=== PATIENT | male | born 1955 | race Caucasian/White ===

== ENCOUNTER 2018-05-26 01:55 | Inpatient (IN) | payer MEDICARE ==
[~2018-05-26] VITALS: Ht 182.9 cm; Wt 113.8 kg
[2018-05-26] MEDS ORDERED: JANUVIA100 MG PO (02:11)
[2018-05-26] MEDS ORDERED: LOSARTAN POT50 MG PO (02:12)
[2018-05-26] MEDS ORDERED: FUROSEMIDE40 MG PO (02:12)
[2018-05-26] MEDS ORDERED: SPIRONOLACT25 MG PO (02:12)
[2018-05-26] MEDS ORDERED: SERTRALINE50 MG PO (02:13)
[2018-05-26] MEDS ORDERED: PRADAXA150 MG PO (02:13)
[2018-05-26] MEDS ORDERED: MICRO-K10 MEQ PO (02:13)
[2018-05-26] MEDS ORDERED: LANTUS100 UNIT/M SC (02:14)
[2018-05-26] MEDS ORDERED: CARVEDILOL6.25 MG PO (02:15)
[2018-05-26] MEDS ORDERED: NOVOLOG100 UNIT/M SC (02:15)
[2018-05-26] MEDS ORDERED: NEURONTIN300 MG PO (02:16)
[2018-05-26] MEDS ORDERED: METFORMIN500 MG PO (02:16)
[2018-05-26] MEDS ORDERED: ASPIRIN CHEWABL81 MG PO (02:17)
[2018-05-26] MEDS ORDERED: KLONOPIN1 MG PO (02:17)
[2018-05-26] MEDS ORDERED: MORPHINE SUL15 MG PO (02:18)
[2018-05-26] MEDS ORDERED: ULTRAM50 MG PO (02:18)
[2018-05-26 02:38] LABS: HEMATOCRIT 39.1 % (39.0-50.0); HEMOGLOBIN 12.2 g/dl (14.0-18.0); IMMATURE GRANULOCYTES 0.7 % (0.0-5.0); MEAN CELL VOLUME 89.5 fL CALC (80.0-100.0); MEAN CORPUSCULAR HGB 27.9 pG CALC (26.0-32.0); MEAN CORPUSCULAR HGB CONC 31.2 g/L CALC (32.0-36.0); NEUT# 12.53 thou/uL (1.82-7.42); RED BLOOD COUNT 4.37 mill/uL (4.70-6.10)
[2018-05-26 02:45] LABS: ALKALINE PHOSPHATASE 99 u/l (38-126); ANION GAP 18 (6-22 (CALC)); BILIRUBIN, TOTAL 0.6 mg/dL (0.0-1.4); BUN 31 mg/dL (8-23); BUN/CREATININE RATIO 23 (12-20 (CALC)); CARBON DIOXIDE 25 mmol/l (22-30); CHLORIDE 97 mmol/l (95-108); CREATININE 1.3 mg/dL (0.7-1.3); GFR 55 ML/MIN (>=60 (CALC)); GFR FOR AFR.AMER. > 60 ML/MIN (>=60 (CALC)); SGOT/AST 27 u/l (19-48); SODIUM 136 mmol/l (137-146)
[2018-05-26 02:52] LABS: ALBUMIN 4.4 g/dL (3.2-5.0); TOTAL PROTEIN 8.3 g/dL (6.3-8.2)
[2018-05-26 05:21] VITALS: BP 108/58
[2018-05-26 07:21] VITALS: BP 99/52
[2018-05-26 14:16] LABS: URINE BILIRUBIN - DIPSTICK NEGATIVE (NEGATIVE); URINE BLOOD DIPSTICK MODERATE (NEGATIVE); URINE COLOR YELLOW; URINE GLUCOSE - DIPSTICK >=1000 mg/dL (NEGATIVE); URINE KETONE NEGATIVE (NEGATIVE); URINE LEUK ESTERASE NEGATIVE (NEGATIVE); URINE NITRITE - DIPSTICK NEGATIVE (Negative); URINE PH 5.5 (4.5-8.0); URINE PROTEIN - DIPSTICK 30 mg/dL (NEG-TRACE); URINE UROBILINOGEN - DIPSTICK 0.2 E.U./dL (0.2)
[2018-05-26 14:28] LABS: URINE WBC 0-2 WBC/hpf (0-5)
[2018-05-26 17:02] VITALS: BP 139/70
[2018-05-26 20:10] VITALS: BP 121/71
[2018-05-27 04:15] VITALS: BP 132/72
[2018-05-27 05:27] LABS: HEMATOCRIT 37.2 % (39.0-50.0); HEMOGLOBIN 11.3 g/dl (14.0-18.0); IMMATURE GRANULOCYTES 1.3 % (0.0-5.0); MEAN CELL VOLUME 92.1 fL CALC (80.0-100.0); MEAN CORPUSCULAR HGB CONC 30.4 g/L CALC (32.0-36.0); NEUT# 7.07 thou/uL (1.82-7.42); RED BLOOD COUNT 4.04 mill/uL (4.70-6.10); RED CELL DISTRI WIDTH 14.6 % (11.5-15.5)
[2018-05-27 05:49] LABS: ALBUMIN 3.8 g/dL (3.2-5.0); ALKALINE PHOSPHATASE 77 u/l (38-126); AMYLASE 50 u/l (30-110); ANION GAP 15 (6-22 (CALC)); BILIRUBIN, TOTAL 0.5 mg/dL (0.0-1.4); BUN 22 mg/dL (8-23); BUN/CREATININE RATIO 22 (12-20 (CALC)); CARBON DIOXIDE 24 mmol/l (22-30); CHLORIDE 101 mmol/l (95-108); GFR > 60 ML/MIN (>=60 (CALC)); GFR FOR AFR.AMER. > 60 ML/MIN (>=60 (CALC)); LIPASE 268 u/l (23-300); POTASSIUM 3.8 mmol/l (3.5-5.1); SGOT/AST 25 u/l (19-48); SODIUM 135 mmol/l (137-146); TOTAL PROTEIN 7.5 g/dL (6.3-8.2)
[2018-05-27 08:16] VITALS: BP 141/72
[2018-05-27 15:19] VITALS: BP 134/64
[2018-05-27 19:26] VITALS: BP 138/76
[2018-05-28 03:38] VITALS: BP 112/55
[2018-05-28 07:58] VITALS: BP 136/84
[2018-05-28 15:27] VITALS: BP 110/56
[2018-05-28 18:50] VITALS: BP 124/66
[2018-05-29 04:00] VITALS: BP 129/70
[2018-05-29 04:53] LABS: HEMATOCRIT 31.4 % (39.0-50.0); HEMOGLOBIN 9.6 g/dl (14.0-18.0); IMMATURE GRANULOCYTES 1.1 % (0.0-5.0); MEAN CELL VOLUME 90.5 fL CALC (80.0-100.0); MEAN CORPUSCULAR HGB 27.7 pG CALC (26.0-32.0); MEAN CORPUSCULAR HGB CONC 30.6 g/L CALC (32.0-36.0); NEUT# 5.66 thou/uL (1.82-7.42); RED BLOOD COUNT 3.47 mill/uL (4.70-6.10); RED CELL DISTRI WIDTH 14.2 % (11.5-15.5)
[2018-05-29 05:15] LABS: ALBUMIN 3.2 g/dL (3.2-5.0); ALKALINE PHOSPHATASE 100 u/l (38-126); AMYLASE 31 u/l (30-110); ANION GAP 14 (6-22 (CALC)); BILIRUBIN, TOTAL 0.5 mg/dL (0.0-1.4); BUN 16 mg/dL (8-23); BUN/CREATININE RATIO 18 (12-20 (CALC)); CARBON DIOXIDE 25 mmol/l (22-30); CHLORIDE 100 mmol/l (95-108); CREATININE 0.9 mg/dL (0.7-1.3); GFR > 60 ML/MIN (>=60 (CALC)); GFR FOR AFR.AMER. > 60 ML/MIN (>=60 (CALC)); LIPASE 154 u/l (23-300); MAGNESIUM 1.9 mg/dL (1.6-2.3); POTASSIUM 4.5 mmol/l (3.5-5.1); SGOT/AST 18 u/l (19-48); SODIUM 134 mmol/l (137-146); TOTAL PROTEIN 6.5 g/dL (6.3-8.2)
[2018-05-29 08:24] VITALS: BP 136/57
[2018-05-29 15:15] VITALS: BP 148/62
[2018-05-29 19:09] VITALS: BP 126/71
[2018-05-30 04:20] VITALS: BP 106/64
[2018-05-30 07:47] VITALS: BP 108/60
[2018-05-30 09:44] VITALS: BP 109/53
[2018-05-30 12:04] VITALS: BP 119/69
[2018-05-30 15:30] VITALS: BP 115/52
[2018-05-30 19:40] VITALS: BP 109/59
[2018-05-31 03:50] VITALS: BP 101/61
[2018-05-31 07:26] VITALS: BP 110/64
[2018-05-31 07:31] VITALS: BP 110/64
[2018-05-31] MEDS ORDERED: KEFLEX500 MG PO (15:03)
== END 2018-05-31 15:35 | disposition home health service (06) | DRG 638 ==
LOC: ED 01:55 → ED-I 02:03 → ED 04:29 → MS2 04:30
PROVIDERS: Family Medicine; ADMIT Internal Medicine Nephrology; ATTEND Internal Medicine Nephrology
DX: E11.621 Type 2 diabetes mellitus with foot ulcer (principal); L97.419 Non-pressure chronic ulcer of right heel and midfoot with unspecified severity; N17.9 Acute kidney failure, unspecified; L03.031 Cellulitis of right toe; L97.519 Non-pressure chronic ulcer of other part of right foot with unspecified severity; E11.51 Type 2 diabetes mellitus with diabetic peripheral angiopathy without gangrene; I12.9 Hypertensive chronic kidney disease with stage 1 through stage 4 chronic kidney disease, or unspecified chronic kidney disease; E11.22 Type 2 diabetes mellitus with diabetic chronic kidney disease; N18.2 Chronic kidney disease, stage 2 (mild); D64.9 Anemia, unspecified; E86.0 Dehydration; I48.91 Unspecified atrial fibrillation; Z79.4 Long term (current) use of insulin; Z79.02 Long term (current) use of antithrombotics/antiplatelets
CPT/HCPCS: J3370

== ENCOUNTER 2018-06-29 20:16 | Inpatient (IN) | payer MEDICARE ==
[~2018-06-29] VITALS: Ht 182.9 cm; Wt 112.5 kg
[~2018-06-29 20:16] MED LIST: ASPIRIN CHEWABL81 MG PO; CARVEDILOL6.25 MG PO; FUROSEMIDE40 MG PO; JANUVIA100 MG PO; KEFLEX500 MG PO; KLONOPIN1 MG PO; LANTUS100 UNIT/M SC; LOSARTAN POT50 MG PO; METFORMIN500 MG PO; MICRO-K10 MEQ PO; MORPHINE SUL15 MG PO; NEURONTIN300 MG PO; NOVOLOG100 UNIT/M SC; PRADAXA150 MG PO; SERTRALINE50 MG PO; SPIRONOLACT25 MG PO; ULTRAM50 MG PO
--- NOTE | 2018-06-29 20:40 | NUR ---
PT ARRIVES BY EMS WITH COMPLAINT OF WEAKNESS AND FEVER, SIMILAR TO HOW HE FELT 3 WEEKS AGO.
[2018-06-29 21:03] LABS: IMMATURE GRANULOCYTES 1.1 % (0.0-5.0); MEAN CELL VOLUME 88.1 fL CALC (80.0-100.0); MEAN CORPUSCULAR HGB 27.2 pG CALC (26.0-32.0); MEAN CORPUSCULAR HGB CONC 30.9 g/L CALC (32.0-36.0); NEUT# 20.38 thou/uL (1.82-7.42); RED BLOOD COUNT 4.3 mill/uL (4.70-6.10); RED CELL DISTRI WIDTH 14.5 % (11.5-15.5)
[2018-06-29 21:10] LABS: HEMATOCRIT 37.9 % (39.0-50.0); HEMOGLOBIN 11.7 g/dl (14.0-18.0)
[2018-06-29 21:25] LABS: ALKALINE PHOSPHATASE 100 u/l (38-126); ANION GAP 18 (6-22 (CALC)); BILIRUBIN, TOTAL 0.4 mg/dL (0.0-1.4); BUN 46 mg/dL (8-23); BUN/CREATININE RATIO 34 (12-20 (CALC)); CARBON DIOXIDE 19 mmol/l (22-30); CHLORIDE 102 mmol/l (95-108); CREATININE 1.3 mg/dL (0.7-1.3); GFR 55 ML/MIN (>=60 (CALC)); GFR FOR AFR.AMER. > 60 ML/MIN (>=60 (CALC)); POTASSIUM 4.5 mmol/l (3.5-5.1); SODIUM 135 mmol/l (137-146)
[2018-06-29 21:28] LABS: ALBUMIN 4.1 g/dL (3.2-5.0); SGOT/AST 39 u/l (19-48); TOTAL PROTEIN 7.9 g/dL (6.3-8.2)
[2018-06-29 21:37] LABS: MYOGLOBIN 65 ng/mL (0 - 121)
--- NOTE | 2018-06-29 21:42 | NUR ---
PT UPDATED ON KNOWN RESULTS, RESTS IN THE STRETCHER IN NO DISTRESS.
[2018-06-29 21:47] LABS: URINE BILIRUBIN - DIPSTICK NEGATIVE (NEGATIVE); URINE BLOOD DIPSTICK TRACE-INTACT (NEGATIVE); URINE COLOR YELLOW; URINE GLUCOSE - DIPSTICK NEGATIVE (NEGATIVE); URINE KETONE TRACE mg/dL (NEGATIVE); URINE LEUK ESTERASE NEGATIVE (NEGATIVE); URINE NITRITE - DIPSTICK NEGATIVE (Negative); URINE PROTEIN - DIPSTICK NEGATIVE (NEG-TRACE); URINE UROBILINOGEN - DIPSTICK 0.2 E.U./dL (0.2)
--- NOTE | 2018-06-29 21:47 | NUR ---
PT AWARE OF PENDING ADMISSION. EDP IN ROOM EXPLAINS PLAN OF CARE.
--- NOTE | 2018-06-30 | NUR ---
AWAITING TEST RESULTS/DISPOSITION.
--- NOTE | 2018-06-30 | NUR ---
AWAITING TX TO FLOOR
--- NOTE | 2018-06-30 00:30 | NUR ---
Admission Note Report Given to: DIVINE REYES Transported by: Wheelchair X Stretcher Transported with: X Nurse Transporter X Patent IV [id number] Cloth Bin Packer
--- NOTE | 2018-06-30 00:34 | NUR ---
PT. ARRIVED TO THE FLOOR VIA STRETCHER ACCOMPANIED BY ER NURSE; NO DISTRESS NOTED; ADMISSION ASSESSMENT COMPLETED; PT. ORIENTETED TO CALL LIGHT,ROOM, AND POC; VERBALIZES UNDERSTANDING; PT. CAME WITH WOUND VAC TO RIGHT FOOT AND PER PT. DRESSING WAS JUST CHANGED ON 06/28/18 BY NURSE AND IS NOT DUE TO BE CHANGED UNTIL THIS COMING SUNDAY; DRESSING INTACT WITH VAL WRAP IN PLACE; SET TO 125MM/HG AND BATTERY PLUGGED IN TO CHARGE;UNABLE TO TAKE PHOTO D/T WOUND VAC IN PLACE; RIGHT SCABBED/CALLOUS NOTED TO RIGHT GREAT TOE AND RLE WITH REDNESS; PHOTOS OBTAINED; PT. DENIES NEEDS/PAIN; PT. INSTRUCTED TO CALL FOR ALL OOB NEEDS; ASSISTED TO CHANGE AND UP TO RECLINER; DENIES WANTING A VINCE HOSE TO BE PLACE TO LLE; CALL LIGHT IS IN REACH; PO FLUIDS OFFERED; CALL LIGHT IS IN REACH.
[2018-06-30 00:40] VITALS: BP 105/43
--- NOTE | 2018-06-30 00:40 | NUR ---
TO FLOOR VIA STRETCHER
[2018-06-30 04:09] VITALS: BP 94/52
--- NOTE | 2018-06-30 05:11 | NUR ---
RESTING IN BED WITH EYES CLOSED; CPAP IN PLACE; CALL LIGHT IS IN REACH.
[2018-06-30 05:59] LABS: HEMATOCRIT 35.5 % (39.0-50.0); HEMOGLOBIN 10.9 g/dl (14.0-18.0); IMMATURE GRANULOCYTES 1.3 % (0.0-5.0); MEAN CELL VOLUME 89.4 fL CALC (80.0-100.0); MEAN CORPUSCULAR HGB 27.5 pG CALC (26.0-32.0); MEAN CORPUSCULAR HGB CONC 30.7 g/L CALC (32.0-36.0); NEUT# 18.25 thou/uL (1.82-7.42); RED BLOOD COUNT 3.97 mill/uL (4.70-6.10); RED CELL DISTRI WIDTH 14.4 % (11.5-15.5)
[2018-06-30 06:02] LABS: ALBUMIN 3.4 g/dL (3.2-5.0); ALKALINE PHOSPHATASE 80 u/l (38-126); ANION GAP 16 (6-22 (CALC)); BILIRUBIN, TOTAL 0.6 mg/dL (0.0-1.4); BUN 41 mg/dL (8-23); BUN/CREATININE RATIO 34 (12-20 (CALC)); CARBON DIOXIDE 20 mmol/l (22-30); CHLORIDE 104 mmol/l (95-108); CREATININE 1.2 mg/dL (0.7-1.3); GFR > 60 ML/MIN (>=60 (CALC)); GFR FOR AFR.AMER. > 60 ML/MIN (>=60 (CALC)); POTASSIUM 4.5 mmol/l (3.5-5.1); SGOT/AST 28 u/l (19-48); SODIUM 135 mmol/l (137-146); TOTAL PROTEIN 6.7 g/dL (6.3-8.2)
--- NOTE | 2018-06-30 06:55 | NUR ---
PT REPORT RECIEVED FROM DIVINE REYES. PT RESTING. NO S/S OF DISTRESS. CALL LIGHT IN REACH. WILL CONTINUE TO MONITOR.
[2018-06-30 08:10] VITALS: BP 104/50
--- NOTE | 2018-06-30 08:29 | NUR ---
PT A/O X3. SPEECH IS CLEAR. RESP EVEN AND UNLABORED. LUNG SOUNDS CLEAR. BOWEL SOUNDS ACTIVE X4. STRONG RADIAL, WEAK PEDAL PULSES. #20 LFA NS @125. SITE APPEARS HEALTHY. PT HAS +1 EDEMA TO RLE, REDDENED, WARM TO TOUCH. WOUND VAC TO RT FOOT, INTACT, CONTINOUS SUCTION AT 125. ELEVATED RLE ON A PILLOW. PT DENIES ANY PAIN OR NEEDS AT THIS TIME. POC DISCUSSED. SAFETY PRECAUTIONS IN PLACE. CALL LIGHT IN REACH. WILL CONTINUE TO MONITOR.
--- NOTE | 2018-06-30 11:23 | NUR ---
PT SITTING IN RECLINER. NO C/O PAIN AT THIS TIME. ENCOURAGED ELEVATION OF RLE. PT HAS IT ELEVATED AT TIME. CALL LIGHT IN REACH. WILL CONTINUE TO MONITOR.
[2018-06-30] MEDS ORDERED: LANTUS100 UNIT/M SC (12:06)
--- NOTE | 2018-06-30 13:53 | NUR ---
S: GARCIA ROTHMAN is a 63 M who presents with DIABETIC FOOT INFECTION LEUCOCYTOSIS. He has a history of Diabetes, Heart Disease (s), Hypertension, Stroke, afib RETINAL NEUROPATHY RIGHT EYE . All medications in patient's chart were reviewed. O: VS: BP 104/50 , P 72 , RR 20,T 98 W 112kg, HT 72IN, Scr=1.2,CrCl= 70 ml/min A: Blood culture <is pending/show> which is sensitive to <>. Urine culture <is pending/show> which is sensitive to <>. P: Patient is on ZOSYN 3.375 GRAM Q6H. Vancomycin ordered for pharmacy to dose. Start Vancomycin 1 GRAM IV Q8H. Vancomycin trough is drawn before the 4th dose on 07/01/18 @1330. Vancomycin goal trough is between 15-20 mcg/ml. Pharmacy will follow and or advise on antibiotics use as needed. ROHINI SIERRA, PHARMD
--- NOTE | 2018-06-30 15:27 | NUR ---
PT C/O BACK PAIN 7 OUT OF 10 ON PAIN SCALE. MEDICATED W/ LORTAB 5/325 PO. REPOSITIONED FOR COMFORT. PT DENIES ANY FURTHER NEEDS. WOUND VAC IN PLACE AND DRAINING FREELY. CALL LIGHT IN REACH. WILL CONTINUE TO MONITOR.
[2018-06-30 15:58] VITALS: BP 154/80
--- NOTE | 2018-06-30 18:22 | NUR ---
D/C INSTRUCTIONS DISCUSSED W/ PT. PT STATES UNDERSTANDING. IV REMOVED. CATHETER INTACT. TELE REMOVED. PT GETTING DRESSED AT THIS TIME.
[2018-06-30 19:21] VITALS: BP 144/66
--- NOTE | 2018-06-30 19:30 | NUR ---
PT. SITTING UP IN RECLINER; NO DISTRESS NOTED; DENIES NEEDS/PAIN; ASSESSMENT COMPLETED; WOUND VAC INTACT TO RIGHT FOOT WITH SETTINGS AT CONINUOUS 125MM/HG; DRY FLAKEY DRAINAGE NOTED TO CANISTER; MILD AMOUNT; UPDATED ON POC; ENCOURAGED TO CALL FOR ANY NEEDS; CALL LIGHT IS IN REACH.
--- NOTE | 2018-06-30 21:53 | NUR ---
PT. SITTING UP IN BED WITH NO DISTRESS NOTED;DENIES NEEDS; SCHED CORWINO HUNG; SNACK PROVIDED; ENCOURAGED TO CALL FOR ANY NEEDS; CALL LIGHT IS IN REACH.
--- NOTE | 2018-07-01 00:19 | NUR ---
REASSESSED TEMP AND IS 101.9; MEDICATED WITH ORDERED PRN TYLENOL AND APPLIED WASHCLOTH TO FOREHEAD; WILL REASSESS;DENIES NEEDS FOR PAIN MEDICATION AT THIS TIME; FRESH WATER PROVIDED; CALL LIGHT IS IN REACH.
--- NOTE | 2018-07-01 04:07 | NUR ---
PT. SITTING UP ON THE SIDE OF THE BED; NO DISTRESS NOTED; DENIES NEEDS; ENCOURAGED TO CALL FOR ANY NEEDS; CALL LIGHT IS IN REACH.
[2018-07-01 04:30] VITALS: BP 123/74
--- NOTE | 2018-07-01 05:43 | NUR ---
PT. SITTING UP IN RECLINER; NO DISTRESS NOTED; DENIES NEEDS/PAIN; ENCOURAGED TO CALL FOR ANY NEEDS; SCHED ABT HUNG; CALL LIGHT IS IN REACH.
--- NOTE | 2018-07-01 05:44 | NUR ---
PT. RESTING IN BED ON LEFT SIDE WITH EYES CLOSED; NO DISTRESS NOTED; RESP EVEN AND UNLABORED; CALL LIGHT IS IN REACH; URINAL EMPTIED;
--- NOTE | 2018-07-01 06:55 | NUR ---
REPORT RECEIVED FROM DIVINE REYES; PT SITTING UP IN RECLINER, LEGS ELEVATED; RESP EVEN AND UNLABORED; VOICE NO CONCERNS;
[2018-07-01 07:49] VITALS: BP 156/80
--- NOTE | 2018-07-01 08:00 | NUR ---
SITTING UP IN RECLINER, LEGS ELEVATED; ASSESSMENT DONE; A/OX3; #20 LAC, NS@125 CC/HR; IV SITE APPEARS HEALTHY; DRESSING TO RT FOOT CDI; WOUND VAC INTACT, CONTINIOUS SUCTION @125; AM MEDS ADMINISTERED; AMBULATED WITH SLOW STEADY GAIT TO RESTROOM; REFUSED HELP; CALL WOODARD IN REACH; SAFETY PRECAUTION REINFORCE;
--- NOTE | 2018-07-01 08:16 | NUR ---
[id number] CALLED IN FOR THIS PT FOR DR. VALLE. DR. VALLE STATED "HE WILL COME BY LATER." CALLED IN CONSULTATION ON THIS NUMBER [phone].
--- NOTE | 2018-07-01 08:17 | NUR ---
CALLED IN CONSULTATION ON [facility]. WOUND HAD RECEIVED FAXED REGARDING CONSULTATION FOR WOUND VAC TO THE RIGHT FOOT.
--- NOTE | 2018-07-01 09:16 | NUR ---
Preliminary culture results called to . Gram (+) cocci in 1/4 vials. The patient is on Vancomycin and Zosyn. No new orders at this time. Pharmacy will follow up when final results become available.
[2018-07-01 10:17] LABS: ANION GAP 15 (6-22 (CALC)); BUN 18 mg/dL (8-23); BUN/CREATININE RATIO 21 (12-20 (CALC)); CARBON DIOXIDE 21 mmol/l (22-30); CHLORIDE 102 mmol/l (95-108); CREATININE 0.9 mg/dL (0.7-1.3); GFR > 60 ML/MIN (>=60 (CALC)); GFR FOR AFR.AMER. > 60 ML/MIN (>=60 (CALC)); MAGNESIUM 1.7 mg/dL (1.6-2.3); POTASSIUM 4.3 mmol/l (3.5-5.1); SODIUM 134 mmol/l (137-146)
[2018-07-01 10:38] LABS: HEMATOCRIT 35.7 % (39.0-50.0); HEMOGLOBIN 10.9 g/dl (14.0-18.0); IMMATURE GRANULOCYTES 0.7 % (0.0-5.0); MEAN CELL VOLUME 89.5 fL CALC (80.0-100.0); MEAN CORPUSCULAR HGB 27.3 pG CALC (26.0-32.0); MEAN CORPUSCULAR HGB CONC 30.5 g/L CALC (32.0-36.0); NEUT# 8.54 thou/uL (1.82-7.42); RED BLOOD COUNT 3.99 mill/uL (4.70-6.10); RED CELL DISTRI WIDTH 14.4 % (11.5-15.5)
--- NOTE | 2018-07-01 12:00 | NUR ---
SITTING UP IN RECLINER EATING LUNCH; RESP EVEN AND UNLABORED ON ROOM AIR; ZOSYN INFUSING, SITE APPEARS HEALTHY; CALL WOODARD IN REACH; WOUND VAC IN PLACE; WILL CONTINUE TO MONITOR.
--- NOTE | 2018-07-01 12:23 | NUR ---
DR VALLE AT BED SIDE
--- NOTE | 2018-07-01 13:28 | NUR ---
DR DAVID AT BEDSIDE TO DISCUSS POC
--- NOTE | 2018-07-01 14:06 | NUR ---
WOUND DR AT BEDSIDE TO REMOVED WOUND VAN AND REDRESS WOUND;
--- NOTE | 2018-07-01 15:28 | NUR ---
S: GARCIA ROTHMAN is a 63 M who presents with Diabetic Foot Infection. He has a history of Diabetes, Heart Disease, Hypertension, Stroke, Afib, Retinal Neuropathy. All medications in patient's chart were reviewed. O: VS: BP 156/80 mmHg, P 84 bpm, RR 20 bpm, T 99.2 F W 112.49 kg, HT 72", Scr= 0.9 mg/dL, CrCl= 95 ml/min A: Preliminary Blood culture shows Gram positive cocci in 1 of 4 vials P: Patient is on Zosyn 3.375gm IV Q6H and Vancomycin 1gm IV Q8H. Vancomycin ordered for pharmacy to dose. Continue Vancomycin 1gm IV Q8H. Vancomycin trough is drawn before the 4th dose on 07/03/18 @1330. Vancomycin goal trough is between <15-20 mcg/ml>. Pharmacy will follow and or advise on antibiotics use as needed.
--- NOTE | 2018-07-01 16:06 | NUR ---
PT SITTING UP IN RECLINER WITH LEGS ELEVATED; WATCHING TV AND ON HIS PHONE; RESP EVEN AND UNLABORED; VOICE NO CONCERNS;
[2018-07-01 17:17] VITALS: BP 137/67
[2018-07-01 18:50] VITALS: BP 165/86
[2018-07-01 21:12] VITALS: BP 176/86
--- NOTE | 2018-07-01 21:35 | NUR ---
2111- ASSESSMENT COMPLETED; REPORTING SOB; SPO2 99%; LS CLEAR/DIM; PT. REPORTING HE TAKES LASIX, SPIROLACTONE,COREG , AND COZAAR AT HOME AND THESE MEDS HAVE NOT BEEN RESTARTED; TEMP IS 101.6 AND PT. C/O BACK PAIN; WILL MEDICATE; 2134- NOTIFIED DR. DAVID OF PT'S C/O SOB AND LS ALONG WITH SPO2; WELL HOME MEDICATIONS THAT ARE NOT CONTINUED AT THIS TIME; NEW ORDERS FOR COZAAR AND COREG TO BE RESTARTED, BUT TO CONTINUE TO HOLD DIURETICS AT THIS TIME; WILL UPDATE PT.
--- NOTE | 2018-07-01 21:59 | NUR ---
UPDATED PT. ON POC; MEDICATED WITH COZAAR AND COREG FOR B/P 176/86 WELL MOTRIN AND LORTAB FOR PAIN AND TEMPNOW UP TO 102; WILL REASSESS; FRESH WATER PROVIDED; CALL LIGHT IS IN REACH.
--- NOTE | 2018-07-01 23:30 | NUR ---
REASSESSED TEMP AND NOW IS 100; WILL CONTINUE TO MONITOR. PT. REPORTS BACK PAIN IS COMING DOWN.
[2018-07-02 00:37] VITALS: BP 118/65
--- NOTE | 2018-07-02 03:10 | NUR ---
RESTING IN BED WITH EYES CLOSED; RESP EVEN AND UNLABORED; CPAP IN PLACE; ENCOURAGED TO CALL FOR ANY NEEDS; CALL LIGHT IS IN REACH.WILL CONTINUE TO MONITOR.
[2018-07-02 03:40] VITALS: BP 109/67
--- NOTE | 2018-07-02 07:05 | NUR ---
PT REPORT RECIEVED FROM DIVINE REYES. PT IN RECLINER WATCHING TELEVISION. NO S/S OF DISTRESS. CALL LIGHT IN REACH. WILL CONTINUE TO MONITOR.
[2018-07-02 08:05] VITALS: BP 134/82
--- NOTE | 2018-07-02 08:05 | NUR ---
PT A/O X3. SPEECH IS CLEAR. RESP EVEN AND UNLABORED. LUNG SOUNDS CLEAR. BOWEL SOUNDS ACTIVE X4. STRONG RADIAL, WEAK PEDAL PULSES. #20 LFA SL. FLUSHED AND PATENT. SITE APPEARS HEALTHY. PT HAS REDNESS TO RLE, DRESSING TO RT FOOT,CDI. ENCOURAGED ELEVATION ON A PILLOW. PT DENIES ANY PAIN OR NEEDS. POC DISCUSSED. SAFETY PRECAUTIONS IN PLACE. CALL LIGHT IN REACH. WILL CONTINUE TO MONITOR.
--- NOTE | 2018-07-02 09:20 | NUR ---
DR. VALLE IN TO SEE PT
--- NOTE | 2018-07-02 13:57 | NUR ---
PT SITTING IN RECLINER. C/O ACHING BACK PAIN. 8 OUT FO 10 ON PAIN SCALE. MEDICATED W/ ONE LORTAB 5/325. RELAXATION TECHNIQUES IN PLACE. CALL LIGHT IN REACH. WILL CONTINUE TO MONITOR.
--- NOTE | 2018-07-02 14:10 | NUR ---
WOND CARE IN TO SEE PT
[2018-07-02 16:00] VITALS: BP 143/73
--- NOTE | 2018-07-02 16:06 | NUR ---
PT SITTING IN RECLINER. NO C/O PAIN OR NEEDS. WOUND VAC TO RT FOOT IN PLACE. CALL LIGHT IN REACH. WILL CONTINUE TO MONITOR.
[2018-07-02 19:00] VITALS: BP 151/78
--- NOTE | 2018-07-02 19:40 | NUR ---
PT. SITTING UP IN RECLINER; WITH NO DISTRESS NOTED; DENIES NEEDS; ASSESSMENT COMPLETED; IV SITE PATENT AND SL; TEMP OF 100.4; MEDICATED WITH ORDERED TYLENOL; WILL REASSESS; PO FLUIDS OFFERED; WOUND VAC IN PLACE TO RIGHT FOOT AND REDNESS NOTED TO RLE; PULSE WEAK; ELEVATED IN RECLINER; DENIES NEEDS AT THIS TIME; CALL LIGHT IS IN REACH; WILL CONTINUE TO MONITOR.
--- NOTE | 2018-07-02 21:17 | NUR ---
PT. C/O BACK PAIN 10/30; MEDICATED WITH ORDERED PRN LORTAB; WILL REASSESS;
--- NOTE | 2018-07-02 23:35 | NUR ---
PT. SITTING UP IN RECLINER; NO DISTRESS NOTED; DENIES NEEDS/PAIN; ENCOURAGED TO CALL FOR ANY NEEDS; CALL LIGHT IS IN REACH.
[2018-07-02 23:47] VITALS: BP 119/65
--- NOTE | 2018-07-03 03:40 | NUR ---
PT. RESTING IN BED WITH EYES CLOSED; CPAP ON; RESP EVEN AND UNLABORED; CALL LIGHT IS IN REACH.
[2018-07-03 04:09] VITALS: BP 100/59
[2018-07-03 04:47] LABS: HEMATOCRIT 32.1 % (39.0-50.0); HEMOGLOBIN 9.9 g/dl (14.0-18.0); IMMATURE GRANULOCYTES 0.4 % (0.0-5.0); MEAN CELL VOLUME 88.4 fL CALC (80.0-100.0); MEAN CORPUSCULAR HGB 27.3 pG CALC (26.0-32.0); MEAN CORPUSCULAR HGB CONC 30.8 g/L CALC (32.0-36.0); NEUT# 4.09 thou/uL (1.82-7.42); RED BLOOD COUNT 3.63 mill/uL (4.70-6.10); RED CELL DISTRI WIDTH 14.1 % (11.5-15.5)
[2018-07-03 05:03] LABS: ALBUMIN 3.2 g/dL (3.2-5.0); ALKALINE PHOSPHATASE 89 u/l (38-126); ANION GAP 13 (6-22 (CALC)); BILIRUBIN, TOTAL 0.4 mg/dL (0.0-1.4); BUN 18 mg/dL (8-23); BUN/CREATININE RATIO 18 (12-20 (CALC)); CARBON DIOXIDE 24 mmol/l (22-30); CHLORIDE 102 mmol/l (95-108); GFR > 60 ML/MIN (>=60 (CALC)); GFR FOR AFR.AMER. > 60 ML/MIN (>=60 (CALC)); MAGNESIUM 1.7 mg/dL (1.6-2.3); SGOT/AST 26 u/l (19-48); SODIUM 135 mmol/l (137-146); TOTAL PROTEIN 6.5 g/dL (6.3-8.2)
--- NOTE | 2018-07-03 06:05 | NUR ---
PT. SITTING UP IN RECLINER WITH NO DISTRESS NOTED; DENIES NEEDS; PO FLUIDS OFFERED; CALL LIGHT IS IN REACH.
[2018-07-03 07:46] VITALS: BP 126/68
--- NOTE | 2018-07-03 07:57 | NUR ---
PT SITTING UP IN RECLINER EATING BREAKFAST; RESP EVEN AND UNLABORED ON ROOM AIR; VANCO INFUSING WITHOUT DIFFICULTY; IV SITE APPEARS HEALTHY; WOUND VAC INPLACE, SUCTION SET @125; NO DRAINAGE NOTED IN CANISTER; AM MEDS ADMINISTERED; CALL WOODARD IN REACH; SAFETY PRECAUTION REINFORCE;
--- NOTE | 2018-07-03 11:52 | NUR ---
PT SITTING UP IN RECLINER, LEGS ELEVATED; WOUND VAC INTACT; ZOSYN INFUSING WITHOUT DIFFICULTY; CALL WOODARD IN REACH; VOICE NO CONCERNS.
--- NOTE | 2018-07-03 15:40 | NUR ---
S: GARCIA ROTHMAN is a 63 M who presents with Osteomyelitis of right toes . He has a history of Diabetes, Heart Disease (s), Hypertension, Stroke, afib RETINAL NEUROPATHY RIGHT EYE . All medications in patient's chart were reviewed. O: VS: BP 126/68, P 59, RR 18,T 97.6 W 112 kg , HT 72IN , Scr=1.0 ,CrCl= >90 ml/min A: Blood culture <is pending/show> which is sensitive to <>. Urine culture <is pending/show> which is sensitive to <>. P: Patient is on VANCOMYCIN . Vancomycin ordered for pharmacy to dose. Start Vancomycin 1000 IV Q12H. Vancomycin trough is drawn before the 4th dose on 1800 07/04/18. Vancomycin goal trough is between 15-20 mcg/ml>. Pharmacy will follow and or advise on antibiotics use as needed. ROHINI HAYESD
[2018-07-03 16:02] VITALS: BP 145/77
--- NOTE | 2018-07-03 16:41 | NUR ---
D/C INSTRUCTIONS GIVEN TO PT, VERBALIZE UNDERSTANDING; IV REMOVED, CATH INTACT; WOUND VAC REMIAN INTACT; TAXI CALLED FOR ADHESIVE BANDAGE MACHINE OPERATOR
== END 2018-07-03 16:45 | disposition home or self-care (01) | DRG 638 ==
LOC: ED 20:16 → ED-I 22:02 → ED 22:44 → MS2 22:45
PROVIDERS: Emergency Medicine; Nurse Practitioner Family; ADMIT Internal Medicine Nephrology; ATTEND Internal Medicine Nephrology
DX: E11.628 Type 2 diabetes mellitus with other skin complications (principal); L97.419 Non-pressure chronic ulcer of right heel and midfoot with unspecified severity; L03.115 Cellulitis of right lower limb; M86.671 Other chronic osteomyelitis, right ankle and foot; E11.621 Type 2 diabetes mellitus with foot ulcer; L97.519 Non-pressure chronic ulcer of other part of right foot with unspecified severity; L03.031 Cellulitis of right toe; E11.51 Type 2 diabetes mellitus with diabetic peripheral angiopathy without gangrene; E11.42 Type 2 diabetes mellitus with diabetic polyneuropathy; I12.9 Hypertensive chronic kidney disease with stage 1 through stage 4 chronic kidney disease, or unspecified chronic kidney disease; E11.22 Type 2 diabetes mellitus with diabetic chronic kidney disease; E11.69 Type 2 diabetes mellitus with other specified complication; N18.9 Chronic kidney disease, unspecified; I48.91 Unspecified atrial fibrillation; N17.9 Acute kidney failure, unspecified; E86.0 Dehydration; Z53.29 Procedure and treatment not carried out because of patient's decision for other reasons; Z79.02 Long term (current) use of antithrombotics/antiplatelets; Z89.421 Acquired absence of other right toe(s); Z79.4 Long term (current) use of insulin
CPT/HCPCS: A9579; J1650